=== PATIENT | male | born 1955 | race Caucasian/White ===

== ENCOUNTER 2017-11-26 07:50 | Outpatient (CLI) | payer OTHER ==
[2017-11-26 09:14] LABS: Estimated GFR-MDRD - POC Greater than 90
--- NOTE | 2017-11-26 10:54 | CT ---
CT ENTEROGRAPHY ABDOMEN AND PELVIS WITH AND WITHOUT IV CONTRAST: Date: 11/26/17 HISTORY: Abdominal bloating. Patient provides report of stomach erosion. COMPARISON: None available. FINDINGS: There is mild dependent bibasilar atelectasis. The heart is mildly enlarged. There are vascular calcifications seen in the visualized coronary arter ies, as well as involving the abdominal aorta and iliac arteries. Calcified granuloma are seen in the liver and spleen. Liver and spleen otherwise have a normal CT liseth earance. Pancreas, bilateral adrenal glands, kidneys, and urinary bladder demonstrate a normal CT appearance. Celiac, superior mesenteric, and inferior mesenteric arteries are patent. There are two patent bilate ral renal arteries present. There is a ventral abdominal wall hernia containing loops of small bowel. The defect within the anter ior abdominal wall measures approximately 6.4 cm. There are dilated loops of small bowel seen within the anterior abdomen superior to the level of the hernia with loops of bowel measuring up to 4.2 cm i n diameter. Loops of bowel proximal and distal to this region are normal in caliber. The exact etiolo gy for dilatation of the bowel lumen is uncertain, although area of transition is seen at the level o f the hernia, although again, the hernia defect is large in size. No definitive intraluminal filling defect is seen within the loops of small bowel. There is colonic diverticulosis with a small amount of retained fecal material seen throughout the co kevin. No free fluid, fluid collection, or lymphadenopathy is seen in the abdomen or pelvis. Degenerative changes are seen in the spine. There is an approximately 1.1 cm lytic lesion with sclero tic margins, and the margins appear to be interdigitated, and this may represent a bone island within the right iliac bone. IMPRESSION: 1. Ventral abdominal wall hernia which contains loops of small bowel. Superior to the hernia defect, there are dilated fluid and gas-filled loops of small bowel measuring up to 4.1 cm. There is transit ion of the dilated loop of bowel to level of the hernia defect, but the hernia defect is large in siz e, measuring at least 6.4 cm in transverse dimensions. There is no bowel wall thickening or adjacent inflammatory changes present. Although the defect measures large in size, a closed loop type obstruct ion cannot be entirely excluded. 2. Colonic diverticulosis. 3. Patent mesenteric arteries. 4. No definite intraluminal filling defect is able to be appreciated within the fluid-filled loops o f small bowel. POS: [facility]
[2017-11-26] MEDS ORDERED: Iopamidol 370 76% 100 ML VIAL ONE (14:04)
== END 2017-11-26 07:51 | disposition home or self-care (01) ==
LOC: CT 07:50
PROVIDERS: ATTEND Internal Medicine Gastroenterology
DX: R10.33 Periumbilical pain (principal); R14.0 Abdominal distension (gaseous); K21.9 Gastro-esophageal reflux disease without esophagitis; R19.15 Other abnormal bowel sounds; K63.89 Other specified diseases of intestine; K43.9 Ventral hernia without obstruction or gangrene; K57.30 Diverticulosis of large intestine without perforation or abscess without bleeding
CPT/HCPCS: 74178; 82565

== ENCOUNTER 2019-02-05 01:05 | Emergency (ER) | payer SELFPAY ==
[2019-02-05 01:26] LABS: #Basophils 0.1 thou/uL (0.0-0.2); #Eosinphils 0.1 thou/uL (0.0-0.7); #Lymphocytes 2.7 thou/uL (1.20-3.40); #Monocytes 0.8 thou/uL (0.11-0.59); %Basophils 0.7 % (0.0-1.0); %Eosinophils 1.5 % (0.0-10.0); %Lymphocytes 31.4 % (21.0-51.0); %Monocytes 9.1 % (0.0-10.0); %Neutrophils 57.3 % (42.0-75.0); Hemoglobin 16.6 g/dL (14.0-18.0); Mean Corpuscular HGB CONC 33.6 g/dL (32.0-36.0); Mean Corpuscular Hemoglobin 31.1 pg (27.0-31.0); Mean Corpuscular Volume 92.8 fL (78.0-98.0); Platelet Count 170 thou/uL (130-400); RBC Distribution Width 11.7 % (11.5-14.5); Red Blood Cell (RBC) Count 5.34 mill/uL (4.70-6.10); White Blood Cell (WBC) Count 8.7 thou/uL (4.8-10.8)
[2019-02-05 01:46] LABS: ALT (SGPT) 25 U/L (8-55); AST (SGOT) 16 U/L (5-34); Albumin 4.5 g/dL (3.4-4.8); Alkaline Phosphatase 71 U/L (40-110); Anion Gap 14 mmol/L (10-20); BUN (Urea Nitrogen) 29 mg/dL (8.4-25.7); Bilirubin, Total 0.6 mg/dL (0.2-1.2); CK (CPK) 74 U/L (30-200); Calc. Creatinine Clearance 0 mL/min (70-130); Calcium 9.6 mg/dL (7.8-10.44); Carbon Dioxide 25 mmol/L (23-31); Chloride 106 mmol/L (98-107); Estimated GFR-MDRD Greater than 90; Globulin 2.4 g/dL (2.4-3.5); Glucose 133 mg/dL (80-115); Potassium 3.6 mmol/L (3.5-5.1); Protein, Total 6.9 g/dL (5.8-8.1); Sodium 141 mmol/L (136-145)
--- NOTE | 2019-02-05 07:41 | RAD ---
EXAM: Single view of the chest HISTORY: Chest pain COMPARISON: None FINDINGS: Single view of the chest shows a normal sized cardiomediastinal silhouette. There is no linda dence of consolidation, mass, or pleural effusion. The bones are unremarkable. IMPRESSION: No evidence of acute cardiopulmonary disease
== END 2019-02-05 05:04 | disposition home or self-care (01) ==
LOC: ERS 01:05
DX: R07.9 Chest pain, unspecified (principal); I25.2 Old myocardial infarction; E78.5 Hyperlipidemia, unspecified; I10 Essential (primary) hypertension; Z95.5 Presence of coronary angioplasty implant and graft; Z87.891 Personal history of nicotine dependence; Z79.899 Other long term (current) drug therapy; Z79.82 Long term (current) use of aspirin
CPT/HCPCS: 36415; 71045; 80053; 82550; 84484; 85025; 93005